=== PATIENT | female | born 1990 | race Caucasian/White ===

== ENCOUNTER 2019-02-07 10:27 | Observation (INO) | payer MEDICAID ==
[2019-02-07] MEDS ORDERED: PREN-153 PO (11:24)
[2019-02-07] MEDS ORDERED: ACET1CAP14 PO (11:25)
== END 2019-02-07 11:57 | disposition home or self-care (01) | DRG 563 ==
LOC: LDRP 10:27
PROVIDERS: ADMIT Obstetrics & Gynecology; ATTEND Obstetrics & Gynecology
DX: O60.03 Preterm labor without delivery, third trimester (principal); Z3A.31 31 weeks gestation of pregnancy; Z87.891 Personal history of nicotine dependence
CPT/HCPCS: 76818; G0378; 59025; 81002

== ENCOUNTER 2019-02-14 13:42 | Observation (INO) | payer MEDICAID ==
[~2019-02-14 13:42] MED LIST: ACET1CAP14 PO; PREN-153 PO
== END 2019-02-14 17:20 | disposition home or self-care (01) | DRG 566 ==
LOC: LDRP 15:52
PROVIDERS: ADMIT Specialist; ATTEND Specialist
DX: O26.893 Other specified pregnancy related conditions, third trimester (principal); Z3A.32 32 weeks gestation of pregnancy
CPT/HCPCS: 59025; 81002; G0378; 76818

== ENCOUNTER 2019-02-21 12:25 | Observation (INO) | payer MEDICAID | END 2019-02-21 15:25 | disposition home or self-care (01) | DRG 566 | LOC: LDRP 14:18 | PROVIDERS: ADMIT Obstetrics & Gynecology; ATTEND Obstetrics & Gynecology | DX: O26.893 Other specified pregnancy related conditions, third trimester (principal); Z3A.33 33 weeks gestation of pregnancy | CPT/HCPCS: 59025; 76818; 81002; G0378 ==

== ENCOUNTER 2019-02-28 15:25 | Observation (INO) | payer MEDICAID | END 2019-02-28 16:35 | disposition home or self-care (01) | DRG 566 | LOC: LDRP 15:25 | PROVIDERS: ADMIT Specialist; ATTEND Specialist | DX: O26.893 Other specified pregnancy related conditions, third trimester (principal); Z3A.34 34 weeks gestation of pregnancy; Z87.891 Personal history of nicotine dependence | CPT/HCPCS: 59025; 76818; 81002; G0378 ==

== ENCOUNTER 2019-03-07 12:28 | Observation (INO) | payer MEDICAID | END 2019-03-07 13:55 | disposition home or self-care (01) | DRG 566 | LOC: LDRP 12:28 | PROVIDERS: ADMIT Obstetrics & Gynecology; ATTEND Obstetrics & Gynecology | DX: O26.893 Other specified pregnancy related conditions, third trimester (principal); Z3A.35 35 weeks gestation of pregnancy | CPT/HCPCS: 59025; 76818; 81002; G0378 ==

== ENCOUNTER 2019-03-14 13:13 | Observation (INO) | payer MEDICAID | END 2019-03-14 14:31 | disposition home or self-care (01) | DRG 566 | LOC: LDRP 13:13 | PROVIDERS: ADMIT Obstetrics & Gynecology; ATTEND Obstetrics & Gynecology | DX: O28.1 Abnormal biochemical finding on antenatal screening of mother (principal); R79.89 Other specified abnormal findings of blood chemistry; Z3A.36 36 weeks gestation of pregnancy | CPT/HCPCS: 59025; 76818; 81002; G0378 ==

== ENCOUNTER 2019-03-21 11:26 | Observation (INO) | payer MEDICAID | END 2019-03-21 13:45 | disposition home or self-care (01) | DRG 566 | LOC: LDRP 11:26 | PROVIDERS: ADMIT Obstetrics & Gynecology; ATTEND Obstetrics & Gynecology | DX: O36.8330 Maternal care for abnormalities of the fetal heart rate or rhythm, third trimester, not applicable or unspecified (principal); Z3A.37 37 weeks gestation of pregnancy | CPT/HCPCS: 59025; 76818; 81002; G0378 ==

== ENCOUNTER 2019-03-28 12:54 | Observation (INO) | payer MEDICAID ==
[~2019-03-28 12:54] MED LIST changes: -ACET1CAP14 PO
== END 2019-03-28 14:50 | disposition home or self-care (01) | DRG 861 ==
LOC: LDRP 12:54
PROVIDERS: ADMIT Specialist; ATTEND Specialist
DX: Z34.83 Encounter for supervision of other normal pregnancy, third trimester (principal); Z3A.38 38 weeks gestation of pregnancy
CPT/HCPCS: 59025; 76818; 81002; G0378

== ENCOUNTER 2019-04-05 10:20 | Observation (INO) | payer MEDICAID | END 2019-04-05 11:35 | disposition home or self-care (01) | DRG 861 | LOC: LDRP 10:20 | PROVIDERS: ADMIT Obstetrics & Gynecology; ATTEND Obstetrics & Gynecology | DX: Z34.83 Encounter for supervision of other normal pregnancy, third trimester (principal); Z3A.39 39 weeks gestation of pregnancy | CPT/HCPCS: 59025; 76818; 81002; G0378 ==

== ENCOUNTER 2019-04-10 13:28 | Observation (INO) | payer MEDICAID | END 2019-04-10 15:07 | disposition home or self-care (01) | DRG 566 | LOC: LDRP 13:28 | PROVIDERS: ADMIT Specialist; ATTEND Specialist | DX: O28.1 Abnormal biochemical finding on antenatal screening of mother (principal); Z3A.40 40 weeks gestation of pregnancy | CPT/HCPCS: 59025; 76818; 81002; G0378 ==

== ENCOUNTER 2019-04-12 06:50 | Inpatient (IN) | payer MEDICAID ==
[~2019-04-12] VITALS: Ht 165.1 cm; Wt 93.4 kg
[2019-04-12] MEDS ORDERED: ACET-1156 PO (07:15)
[2019-04-12] MEDS ORDERED: PHISODERM TOP SOLN 240ML BTL TOP PRN (07:30)
[2019-04-12] MEDS ORDERED: LIDOCAINE 2%HCL (LOCAL ANESTH.) INJ 20ML MDV ID ONE (07:30)
[2019-04-12] MEDS ORDERED: NALBUPHINE HCL 10 MG/1ml INJECTION IV PRN (07:30)
[2019-04-12] MEDS ORDERED: WITCH HAZEL-GLYCERIN PAD TOP PRN (07:30)
[2019-04-12] MEDS ORDERED: METHYLERGONOVINE MALEATE 0.2 MG/ML AMP IM PRN (07:30)
[2019-04-12] MEDS ORDERED: LACT. RINGERS/OXYTOCIN 20UNITS 1,000 ML IV SCH (07:30)
[2019-04-12] MEDS: LACTATED RINGER'S 1,000 ML IV SCH ×3 (08:01→12:43)
[2019-04-12 08:17] LABS: Urine WBC None Seen /hpf (0 - 5)
[2019-04-12 08:29] LABS: Basophils # (auto) 0.1 uL; Basophils % (auto) 0.7 % (0.0-2.0); Eosinophils # (auto) 0 uL; Hematocrit 37.9 % (36.0-46.0); Hemoglobin 12.8 g/dL (12.2-16.2); Mean Corpuscular Hemoglobin 30.6 pg (28.0-32.0); Mean Corpuscular Hgb Conc. 33.8 g/dL (32.0-36.0); Mean Corpuscular Volume 90.7 fL (80.0-100.0); Monocytes # (auto) 0.3 uL; Monocytes % (auto) 2.3 % (0.0-12.0); Neutrophils # (auto) 12.5 uL; Platelet Count (auto) 223 10^3/uL (140-450); Red Blood Cells 4.18 10^6/uL (4.0-5.20); Red Cell Distribution Width 13.6 % (11.8-14.3); White Blood Cell 13.9 10^3/uL (4.4-10.8)
[2019-04-12 08:37] LABS: Urine Amorphous Crystal MANY /hpf (None Seen); Urine Bacteria NONE SEEN /hpf (None Seen); Urine Blood Negative /uL (Negative); Urine Mucus FEW (None Seen); Urine Specific Gravity 1.018 (1.001-1.035)
[2019-04-12 08:46] LABS: Albumin 2.8 g/dL (3.4-5.0); Calcium 8.6 mg/dL (8.5-10.1); Potassium 3.6 mmol/L (3.5-5.1)
[2019-04-12 08:48] LABS: BUN/Creatinine Ratio 8.9
[2019-04-12 08:50] LABS: INR 0.96 (0.9-1.15); Partial Thromboplastin Time 26.6 sec (23.64-32.05)
[2019-04-12 08:50] LABS: Alcohol, Urine < 3.0 mg/dL (0-5); Amphetamine Screen, Urine NEGATIVE (NEGATIVE); Barbiturate Scree,Urine NEGATIVE (NEGATIVE); Benzodiazephine Screen, Urine NEGATIVE (NEGATIVE); Cannabinoid Screen, Urine NEGATIVE (NEGATIVE); Cocaine Screen, Urine NEGATIVE (NEGATIVE); Opiate Scree,Urine NEGATIVE (NEGATIVE); Phencyclidine Screen, Urine NEGATIVE (NEGATIVE)
[2019-04-12 08:51] LABS: Bilirubin, Total 0.3 mg/dL (0.2-1.0)
[2019-04-12] MEDS ORDERED: PROMETHAZINE HCL 25 MG/ML 1ML IV PRN (09:45)
[2019-04-12] MEDS ORDERED: LACTATED RINGER'S 1,000 ML IV ONE (10:43)
[2019-04-12] MEDS ORDERED: LIDOCAINE HCL 2 %PF INJ 10ML AMP IJ ONE (10:45)
[2019-04-12] MEDS ORDERED: ePHEDrine SULFATE 50 MG/ML AMP IV ONE (10:45)
[2019-04-12] MEDS ORDERED: NALOXONE HCL 0.4 MG/ML VIAL IV ONE (10:45)
[2019-04-12] MEDS ORDERED: fentaNYL W ROPIVACAINE 150 ML EPI SCH (10:45)
[2019-04-12] MEDS ORDERED: fentaNYL CITRATE 100 MCG/2 ML VL IV ONE (11:00)
[2019-04-12] MEDS ORDERED: LACT. RINGERS/OXYTOCIN 20UNITS 500 ML IV ONE (16:19)
[2019-04-12] MEDS: DERMOPLAST 60ML BOTTLE TOP PRN (16:46)
[2019-04-12] MEDS ORDERED: ACETAMINOPHEN 325 MG TAB PO PRN (17:30)
--- NOTE | 2019-04-12 18:18 | NUR ---
Teaching: Reviewed information in [facility] booklet with patient. Discussed benefits of and risks associated with not . Discussed different positions, proper latch, feeding cues, and baby-led . Provided information of medication side effects related to . All questions and concerns addressed at this time. Patient verbalized understanding of information.
--- NOTE | 2019-04-12 18:35 | NUR ---
Ambulation: Patient OOB with standby assistance by RN. Patient ambulated to bathroom with steady gait. Patient able to void 700ML without difficulty. [facility] teaching provided with returned demonstration by patient. Clean gown provided and bed linen changed. Patient ambulated back to bed with steady gait and no distress noted.
[2019-04-12] MEDS: IBUPROFEN 600 MG TAB PO PRN (18:59)
[2019-04-12 19:01] VITALS: BP 135/76
[2019-04-12 22:59] VITALS: BP 126/73
--- NOTE | 2019-04-12 23:00 | NUR ---
Bottle-feeding Education: Patient encouraged to breastfeed. Benefits of and the risk of providing formula to was discussed. Patient verbalized understanding of the benefits and is aware of risk and insists on bottle-feeding. Formula provided and instruction on formula preperation from the [facility] booklet reviewed with patient.
[2019-04-13] MEDS: IBUPROFEN 600 MG TAB PO PRN ×2 (00:36→18:32)
[2019-04-13 03:00] VITALS: BP 117/64
[2019-04-13 05:07] LABS: RPR Non Reactive (Non Reactive)
[2019-04-13] MEDS ORDERED: TETANUS-DIPTH-ACEL PERTUSSIS 0.5ML SYRG IM ONE (05:15)
[2019-04-13] MEDS ORDERED: MEASLES, MUMPS & RUBELLA VAC(MMRII) 0.5ML SC ONE (05:45)
[2019-04-13 06:42] VITALS: BP 117/66
[2019-04-13 08:13] LABS: Calcium 8.1 mg/dL (8.5-10.1); Potassium 3.4 mmol/L (3.5-5.1)
[2019-04-13 08:15] LABS: Albumin 2.4 g/dL (3.4-5.0)
[2019-04-13 08:27] LABS: Bilirubin, Total 0.5 mg/dL (0.2-1.0); Total Protein 5.7 g/dL (6.4-8.2)
[2019-04-13 11:18] VITALS: BP 119/74
[2019-04-13 14:54] VITALS: BP 111/76
[2019-04-13 19:00] VITALS: BP 119/67
--- NOTE | 2019-04-13 20:30 | NUR ---
IV removal IV DC'd per Pérez CNM orders with sterile technique, catheter fully intact. Pressure dressing applied to site. Patient tolerated procedure well. Discharged with aftercare instructions per MD.
[2019-04-13 22:54] VITALS: BP 107/61
[2019-04-14 03:32] VITALS: BP 112/64
[2019-04-14] MEDS: IBUPROFEN 600 MG TAB PO PRN ×2 (05:52→09:21)
[2019-04-14 07:00] VITALS: BP 119/65
--- NOTE | 2019-04-14 09:13 | NUR ---
Discharge: Discharge instructions given as ordered. Pt encouraged to follow up with CELL INSPECTOR as instructed. All questions and concerns addressed. Patient verbalized understanding. Medication reconciliation completed and copy given to patient. All required/requested vaccines given and copies of vaccinations given to patient. Patient encouraged to prepare to depart unit.
[2019-04-14] MEDS: DERMOPLAST 60ML BOTTLE TOP PRN (09:21)
[2019-04-14] MEDS ORDERED: MEASLES, MUMPS & RUBELLA VAC(MMRII) 0.5ML SC ONE (09:30)
--- NOTE | 2019-04-14 10:15 | NUR ---
Discharge: Patient taken to vehicle via wheelchair with all personal belongings, accompanied by staff and family member. No distress noted at time of departure, no adverse changes in status since initial assessment.
== END 2019-04-14 10:15 | disposition home or self-care (01) | DRG 560 ==
LOC: LDRP 06:50 → OBSVTOIN 07:30 → LDRP 10:45
PROVIDERS: ADMIT Obstetrics & Gynecology; ATTEND Obstetrics & Gynecology
PROC: 10E0XZZ Delivery of Products of Conception, External Approach (ICD-10-PCS; principal; 2019-04-12)
PROC: 10907ZC Drainage of Amniotic Fluid, Therapeutic from Products of Conception, Via Natural or Artificial Opening (ICD-10-PCS; 2019-04-12)
PROC: 3E0R3BZ Introduction of Anesthetic Agent into Spinal Canal, Percutaneous Approach (ICD-10-PCS; 2019-04-12)
PROC: 00HU33Z Insertion of Infusion Device into Spinal Canal, Percutaneous Approach (ICD-10-PCS; 2019-04-12)
PROC: 0W8NXZZ Division of Female Perineum, External Approach (ICD-10-PCS; 2019-04-12)
PROC: 0KQM0ZZ Repair Perineum Muscle, Open Approach (ICD-10-PCS; 2019-04-12)
DX: O48.0 Post-term pregnancy (principal); O70.1 Second degree perineal laceration during delivery; O77.0 Labor and delivery complicated by meconium in amniotic fluid; Z3A.40 40 weeks gestation of pregnancy; Z37.0 Single live birth
CPT/HCPCS: 36415; 51702; 59025; 59409; 62282; 80053; 80307; 81001; 81002; 84112; 85025; 85610; 85730; 86592; 86850; 86900; 86901; 90715; 96361; 96365; 96366; 96372; 96375; G0378; J2590; J3010

== ENCOUNTER 2023-01-22 06:28 | Day surgery (SDC) | payer MEDICAID ==
[2023-01-19 11:31] LABS: Urine Bacteria NONE SEEN /hpf (None Seen); Urine Blood Negative /uL (Negative); Urine Clarity Clear (Clear); Urine Color Yellow (Yellow); Urine Mucus FEW (None Seen); Urine Protein, UAD Negative (Negative); Urine Specific Gravity 1.029 (1.001-1.035); Urine Urobilinogen Normal (Negative); Urine WBC 1 /hpf (0 - 5)
[2023-01-19 11:37] LABS: Basophils # (auto) 0 10 ^3/uL (0-0.2); Eosinophils # (auto) 0.1 10 ^3/uL (0-0.8); Hemoglobin 13.3 g/dL (12.2-16.2); Lymphocytes # (auto) 2.4 10 ^3/uL (0.4-5.4); Mean Corpuscular Hgb Conc. 33.2 g/dL (32.0-36.0)
[2023-01-19 11:38] LABS: INR 0.98 (0.9-1.15); Partial Thromboplastin Time 28.8 SEC (24.5-34.5); Prothrombin Time 10.3 sec (9.3-11.8)
[2023-01-19 11:41] LABS: Basophils % (auto) 0.4 % (0.0-2.0); Hematocrit 39.9 % (36.0-46.0); Lymphocytes % (auto) 27.1 % (10.0-50.0); Mean Corpuscular Volume 81.3 fL (80.0-100.0); Monocytes # (auto) 0.5 10 ^3/uL (0-1.3); Monocytes % (auto) 5.2 % (0.0-12.0); Neutrophils # (auto) 5.8 10 ^3/uL (1.6-8.6); Neutrophils % (auto) 66.3 % (37.0-80.0); Red Blood Cells 4.91 10^6/uL (4.0-5.20); Red Cell Distribution Width 19.1 % (11.8-14.3); White Blood Cell 8.7 10^3/uL (4.4-10.8)
[2023-01-19 11:59] LABS: Alanine Aminotransferase 13 U/L (7-40); Alkaline Phosphatase 100 U/L (46-116); Anion Gap 8.3 (5-15); BUN/Creatinine Ratio 12.2 (10.0-20.0); Blood Urea Nitrogen 9 mg/dL (9-23); Calcium 9.4 mg/dL (8.5-10.1); Carbon Dioxide 22.7 mmol/L (20-30); Chloride 107 mmol/L (98-107); Glucose 114 mg/dL (74-106); Potassium 3.9 mmol/L (3.5-5.1); Sodium 138 mmol/L (136-145)
[2023-01-19 12:01] LABS: Albumin 4.5 g/dL (3.2-4.8); Aspartate Aminotransferase 11 U/L (13-40); Bilirubin, Total 0.3 mg/dL (0.2-1.0); Total Protein 7.3 g/dL (5.7-8.2)
[~2023-01-22] VITALS: Ht 165.1 cm; Wt 96.6 kg
[~2023-01-22 06:28] MED LIST changes: +IRONTAB34 OR; -PREN-153 PO
[2023-01-22] MEDS ORDERED: ceFAZolin 1GM/50ML 100 ML IV ONE (07:26)
[2023-01-22] MEDS ORDERED: IBUP-1456 PO (07:59)
[2023-01-22] MEDS ORDERED: ZOFR4T PO (07:59)
[2023-01-22] MEDS ORDERED: MEPERIDINE HCL (50 MG/ML) 1 ML VIAL ONE (08:46)
[2023-01-22] MEDS ORDERED: MIDAZOLAM HCL 2MG/2ML 2ml VIAL (1mg/ml) ONE (08:46)
[2023-01-22] MEDS ORDERED: fentaNYL CITRATE 100 MCG/2 ML VL ONE (08:46)
[2023-01-22] MEDS ORDERED: GLYCOPYRROLATE 0.2 MG/ML 1ML VIAL ONE (08:47)
[2023-01-22] MEDS ORDERED: KETOROLAC TROMETH 30 MG/ML 1ML VIAL ONE (08:47)
[2023-01-22] MEDS ORDERED: PROPOFOL 10 MG/ML 20 ML IV ONE (08:47)
[2023-01-22] MEDS ORDERED: ONDANSETRON HCL 4 MG/2 ML VIAL ONE (08:47)
[2023-01-22] MEDS ORDERED: DexAMETHasone SOD PHOS 10MG/1ML VIAL INJ ONE (08:47)
[2023-01-22] MEDS ORDERED: LIDOCAINE 2% (LOCAL ANESTH.) PF 5ml SDV ONE (08:47)
[2023-01-22 09:44] VITALS: TEMP 97.5; O2SAT 100
[2023-01-22] MEDS ORDERED: HYDROmorphone HCL 2 MG/ML VL/or syr IV PRN (10:00)
[2023-01-22] MEDS ORDERED: ONDANSETRON HCL 4 MG/2 ML VIAL IV PRN (10:00)
[2023-01-22 10:44] VITALS: BP 113/62; PULSE 82; RESP 10; O2SAT 98
== END 2023-01-22 10:53 | disposition home or self-care (01) ==
LOC: SUR 06:28
PROVIDERS: ATTEND Obstetrics & Gynecology
DX: N93.9 Abnormal uterine and vaginal bleeding, unspecified (principal); N88.8 Other specified noninflammatory disorders of cervix uteri; Z79.1 Long term (current) use of non-steroidal anti-inflammatories (NSAID); Z91.013 Allergy to seafood
CPT/HCPCS: 36415; 58558; 80053; 81001; 81025; 84702; 85025; 85610; 85730; 86850; 86900; 86901; J0690; J1100; J1885; J2001; J2175; J2250; J2405; J2704; J3010

== ENCOUNTER 2024-08-23 10:09 | Observation (INO) | payer MEDICAID ==
[~2024-08-23 10:09] MED LIST changes: +IBUP-1456 PO; +ZOFR4T PO
--- NOTE | 2024-08-23 11:00 | DVH ---
BIOPHYSICAL PROFILE HISTORY: AMA Comparison Study: None TECHNIQUE: Multiple real-time grayscale sonographic images through the gravid uterus of the fetus wi th duplex Doppler color flow and M-mode spectral analysis FINDINGS: BIOPHYSICAL PROFILE: breathing score: 2 movement score: 2 tone score: 2 Quantitative SARABJIT score: 2 (SARABJIT: 15.4 Cm.) Total score: 8 The cervix is not visualized Single live fetus in cephalic presentation. heart rate 138 beats per minute. Grade 2, anterior placenta without previa or abruption IMPRESSION: Biophysical profile score: 8
== END 2024-08-23 11:56 | disposition home or self-care (01) ==
LOC: LDRP 10:09
PROVIDERS: ADMIT Obstetrics & Gynecology; ATTEND Obstetrics & Gynecology
DX: O09.513 Supervision of elderly primigravida, third trimester (principal); Z3A.35 35 weeks gestation of pregnancy; Z79.899 Other long term (current) drug therapy
CPT/HCPCS: 76819; 81002; 94760; G0378

== ENCOUNTER 2024-08-30 08:05 | Observation (INO) | payer MEDICAID ==
[2024-08-30] MEDS ORDERED: PREN-96 PO (09:06)
--- NOTE | 2024-08-30 09:59 | DVHDS2 ---
Physician Discharge Progress N Final Diagnosis: ama 36wks Operations or Procedures: Operations or Procedures nst,sono Condition on Discharge: Good Disposition: Home Discharge Instructions: Diet: Regular Activity: No Restrictions, As Tolerated Medications: na Follow Up Care: Specialist: 1w Discharge Statement: "Patient was advised to return to the ER or call 911 if any headaches, dizziness, shortness of breath, chest pain, abdominal pain, bleeding, fevers, or worsening of medical condition. Patient was counseled about treatment plan, medications, possible side effects, patientverbalized understanding. All questions were answered to the best of my ability. This discharge took greater then 30 minutes in planning, reviewing documentation, counseling the patient, and discussing with other team members." Visit Coding OBGYN Date of Service: Aug 30, 2024 Billing Provider: SULEMAN MIJARES DO FOOD PROCESSING CHEMIST Common Visit Codes: [id number] OBS CARE (HIGH) FOOD PROCESSING CHEMIST Procedure Codes: 41378-50- NON-STRESS TEST SULEMAN MIJARES DO Aug 30, 2024 09:59
--- NOTE | 2024-08-30 11:04 | DVH ---
BIOPHYSICAL PROFILE HISTORY: AMA TECHNIQUE: Multiple transabdominal real-time grayscale sonographic images through the gravid uterus of the fetus with duplex Doppler color flow and M-mode spectral analysis FINDINGS: BIOPHYSICAL PROFILE: breathing score: 2 movement score: 2 tone score: 2 Quantitative SARABJIT score: 2 (SARABJIT: 14.2 Cm.) Total score: 8 The cervix not well visualized Single live fetus in cephalic presentation. heart rate 132 beats per minute. Grade 2 anterior placenta without previa or abruption IMPRESSION: Biophysical profile score: 8
== END 2024-08-30 09:34 | disposition home or self-care (01) ==
LOC: LDRP 08:05
PROVIDERS: ADMIT Obstetrics & Gynecology; ATTEND Obstetrics & Gynecology
DX: O09.523 Supervision of elderly multigravida, third trimester (principal); Z3A.36 36 weeks gestation of pregnancy; Z79.899 Other long term (current) drug therapy
CPT/HCPCS: 59025; 76819; 81002; 94760; G0378

== ENCOUNTER 2024-09-06 08:17 | Observation (INO) | payer MEDICAID ==
[~2024-09-06 08:17] MED LIST changes: +PREN-96 PO
--- NOTE | 2024-09-06 09:21 | DVH ---
CLINICAL HISTORY: AMA COMPARISON: US BIOPHYSICAL PROFILE on DOS: 08/30/24, US BIOPHYSICAL PROFILE on DOS: 08/23/24 TECHNIQUE: biophysical profile was performed. Transabdominal sonographic images of the fetus we re obtained. FINDINGS: The fetus is in cephalic position. heart rate measures 136 BPM. Amniotic fluid index measures 17.2 cm. The placenta is anterior in position without evidence of previa or abruption. BPP profile is an overall score of 8/8, with 2/2 points for breathing, with at least one episode of breathing over a 30 second duration during a 30 minute observation, 2/2 points for m ovements, with 3 or more discrete body or limb movements, 2/2 points for tone, with one or more episodes of extremity extension with return to flexion, or opening and closing of hand, and 2/ 2 points for amniotic fluid, with at least 1 pocket of amniotic fluid that measures 2 cm in 2 perpend icular planes. IMPRESSION: BPP score of 8/8.
--- NOTE | 2024-09-06 13:43 | DVHDS2 ---
Physician Discharge Progress N Final Diagnosis: ama 37wks Operations or Procedures: Operations or Procedures nst,sono Condition on Discharge: Good Disposition: Home Discharge Instructions: Diet: Regular Activity: No Restrictions, As Tolerated Medications: na Follow Up Care: Specialist: 1w Discharge Statement: "Patient was advised to return to the ER or call 911 if any headaches, dizziness, shortness of breath, chest pain, abdominal pain, bleeding, fevers, or worsening of medical condition. Patient was counseled about treatment plan, medications, possible side effects, patientverbalized understanding. All questions were answered to the best of my ability. This discharge took greater then 30 minutes in planning, reviewing documentation, counseling the patient, and discussing with other team members." Visit Coding OBGYN Date of Service: Sep 06, 2024 Billing Provider: SULEMAN MIJARES DO MACHINE FELLER Common Visit Codes: [id number] INP/OBS CARE (HIGH) MACHINE FELLER Procedure Codes: 76674-MLK.SURG: W/SALPINGOSTOMY, 04231-30- NON- STRESS TEST SULEMAN MIJARES DO Sep 06, 2024 13:42
== END 2024-09-06 09:28 | disposition home or self-care (01) ==
LOC: LDRP 08:17 → UNDOADMOB 08:17 → LDRP 08:25 → UNDODISOB 09:28
PROVIDERS: ADMIT Obstetrics & Gynecology; ATTEND Obstetrics & Gynecology
DX: O09.523 Supervision of elderly multigravida, third trimester (principal); Z3A.37 37 weeks gestation of pregnancy
CPT/HCPCS: 59025; 76819; 81002; 94760; G0378

== ENCOUNTER 2024-09-13 14:00 | Observation (INO) | payer MEDICAID ==
[~2024-09-13] VITALS: Ht 165.1 cm; Wt 104.3 kg
--- NOTE | 2024-09-13 14:51 | DVH ---
BIOPHYSICAL PROFILE HISTORY: AMA TECHNIQUE: Multiple transabdominal real-time grayscale sonographic images through the gravid uterus of the fetus with duplex Doppler color flow and M-mode spectral analysis FINDINGS: BIOPHYSICAL PROFILE: breathing score: 2 movement score: 2 tone score: 2 Quantitative SARABJIT score: 2 (SARABJIT: 16.6 Cm.) Total score: 8 The cervix not well visualized. Single live fetus in cephalic presentation. heart rate 150 beats per minute. Anterior placenta without previa or abruption IMPRESSION: Biophysical profile score: 8
--- NOTE | 2024-09-14 17:13 | DVHDS2 ---
Physician Discharge Progress N Final Diagnosis: ama 38wks Operations or Procedures: Operations or Procedures nst,sonno Condition on Discharge: Good Disposition: Home Discharge Instructions: Diet: Regular Activity: Light activity Medications: na Follow Up Care: Specialist: 1w Discharge Statement: "Patient was advised to return to the ER or call 911 if any headaches, dizzines s, shortness of breath, chest pain, abdominal pain, bleeding, fevers, or worsening of medical condition. Patient was counseled about treatment plan, medications, possible side effects, patientverbalized understanding. All questions were answered to the best of my ability. This discharge took greater then 30 minutes in planning, reviewing documentation, counseling the patient, and discussing with other team members." Visit Coding OBGYN Date of Service: Sep 14, 2024 Billing Provider: SULEMAN MIJARES DO SURGERY MANAGER Common Visit Codes: [id number] INP/OBS CARE (HIGH) SURGERY MANAGER Procedure Codes: 69812-50- NON-STRESS TEST SULEMAN MIJARES DO Sep 14, 2024 17:13
== END 2024-09-13 15:07 | disposition home or self-care (01) ==
LOC: LDRP 14:00
PROVIDERS: ADMIT Obstetrics & Gynecology; ATTEND Obstetrics & Gynecology
DX: O09.513 Supervision of elderly primigravida, third trimester (principal); Z3A.38 38 weeks gestation of pregnancy; Z79.899 Other long term (current) drug therapy
CPT/HCPCS: 59025; 76819; 81002; 94760; G0378

== ENCOUNTER 2024-09-18 08:11 | Inpatient (IN) | payer MEDICAID ==
[~2024-09-18] VITALS: Ht 165.1 cm; Wt 104.3 kg
[2024-09-18] MEDS ORDERED: NALBUPHINE HCL 10 MG/1ml INJECTION IV PRN (08:30)
[2024-09-18 09:20] LABS: Albumin 4.2 g/dL (3.2-4.8); Anion Gap 12 (5-15); BUN/Creatinine Ratio 10.2 (10.0-20.0); Bilirubin, Total 0.5 mg/dL (0.2-1.0); Calcium 9.6 mg/dL (8.7-10.4); Carbon Dioxide 22 mmol/L (20-31); Chloride 106 mmol/L (98-107); Glucose 94 mg/dL (74-106); Sodium 140 mmol/L (136-145); Total Protein 6.5 g/dL (5.7-8.2)
[2024-09-18 09:21] LABS: Alanine Aminotransferase < 9 U/L (7-40); Alkaline Phosphatase 141 U/L (46-116); Aspartate Aminotransferase 12 U/L (13-40); Basophils # (auto) 0 10 ^3/uL (0-0.2); Basophils % (auto) 0.2 % (0.0-2.0); Blood Urea Nitrogen 5 mg/dL (9-23); Eosinophils # (auto) 0.1 10 ^3/uL (0-0.8); Eosinophils % (auto) 0.6 % (0.0-7.0); Hematocrit 36.5 % (36.0-46.0); Hemoglobin 12.5 g/dL (12.2-16.2); Lymphocytes # (auto) 1.9 10 ^3/uL (0.4-5.4); Lymphocytes % (auto) 18.6 % (10.0-50.0); Mean Corpuscular Hemoglobin 30.1 pg (28.0-32.0); Mean Corpuscular Hgb Conc. 34.2 g/dL (32.0-36.0); Mean Corpuscular Volume 88.1 fL (80.0-100.0); Monocytes # (auto) 0.7 10 ^3/uL (0-1.3); Neutrophils # (auto) 7.6 10 ^3/uL (1.6-8.6); Neutrophils % (auto) 73.6 % (37.0-80.0); Nucleated Red Blood Cells % 0.1 %; Platelet Count (auto) 207 10^3/uL (140-450); Potassium 3.3 mmol/L (3.5-5.1); Red Blood Cells 4.15 10^6/uL (4.0-5.20); Red Cell Distribution Width 15.2 % (11.8-14.3); White Blood Cell 10.3 10^3/uL (4.4-10.8)
[2024-09-18 09:32] LABS: INR 0.97 (0.9-1.15); Partial Thromboplastin Time 26.6 SEC (24.5-34.5); Prothrombin Time 10.3 sec (9.3-11.8)
[2024-09-18 09:56] LABS: Urine Bacteria FEW /hpf (None Seen); Urine Blood Negative /uL (Negative); Urine Clarity Turbid (Clear); Urine Color Yellow (Yellow); Urine Mucus FEW (None Seen); Urine Protein, UAD Negative (Negative); Urine Squamous Epithelial Cell MOD /hpf (<5); Urine Urobilinogen Normal (Negative); Urine WBC 3 /HPF (0-5)
[2024-09-18] MEDS: miSOPROStol 50 MCG per PRE-CUT 1/2 TAB PO PRN (10:00)
[2024-09-18] MEDS: LACTATED RINGER'S 1,000 ML IV SCH (10:01)
[2024-09-18 10:11] LABS: Amphetamine Screen, Urine Neg (NEGATIVE); Barbiturate Scree,Urine Neg (NEGATIVE); Benzodiazephine Screen, Urine Neg (NEGATIVE); Cannabinoid Screen, Urine Neg (NEGATIVE); Cocaine Screen, Urine Neg (NEGATIVE); Opiate Scree,Urine Neg (NEGATIVE); Phencyclidine Screen, Urine Neg (NEGATIVE)
--- NOTE | 2024-09-18 13:49 | DVH ---
EXAM: US OBSTERICAL LIMITED HISTORY: verify presentation COMPARISON: None TECHNIQUE: Transabdominal limited OB ultrasound was performed. FINDINGS/IMPRESSION: 1. Single intrauterine in cephalic position with heart rate 147 BPM. 2. Amniotic fluid index 18 cm 3. The placenta is anterior, without evidence of placenta previa.
[2024-09-18] MEDS ORDERED: TERBUTALINE SULFATE 1 MG/ML 1ML VIAL SC PRN (14:30)
[2024-09-18] MEDS ORDERED: NALOXONE HCL 0.4 MG/ML VIAL IV ONE (15:00)
[2024-09-18] MEDS: LIDOCAINE HCL 2 %PF INJ 10ML AMP IJ ONE (15:00)
[2024-09-18] MEDS ORDERED: ePHEDrine SULFATE 50 MG/ML AMP IV ONE (15:00)
[2024-09-18] MEDS: DERMOPLAST 60ML BOTTLE TOP PRN (15:44)
[2024-09-18] MEDS: PHISODERM TOP SOLN 240ML BTL TOP PRN (15:44)
[2024-09-18] MEDS: WITCH HAZEL-GLYCERIN PAD TOP PRN (15:44)
[2024-09-18] MEDS: ROPIVACAINE HCL 200 ML ONE (15:54)
[2024-09-18] MEDS: fentaNYL CITRATE 100 MCG/2 ML VL IV ONE (15:59)
--- NOTE | 2024-09-18 16:20 | EPIDURAL ---
Anesthesia Procedural Note - Epidural Informed consent obtained?: Yes Medication Administered: Fentanyl 100 mcg Spinal level of insertion: L4-L5 Test dose of lidocaine & Epine: Negative Infusion started: Yes Start time: 15:35 End time: 16:05 Procedure description Procedure description: Called for labor analgesia. Patient examined, history taken and chart reviewed at 1535. Patient is here for induction of labor for suspected macrosomia. Patient requested labor epidural prior to labor augmentation with pitocin. Informed consent for CSE obtained. Sitting position, sterile prep and drape. Time out done at 1537 (BP 141/77 HR 85 spO2 98). L4-5 space infiltrated with 1% lido. Epidural needle placed with MAULIK at 6cm. 25G spinal needle +clear CSF. 15mcg fentanyl given IT at 1545 (BP 127/71 HR 94 spO2 99). Catheter secured at 12cm. Aspiration and test dose (3cc 1.5% lido with epi) negative at 1548 (BP 126/69 HR 92 spO2 98). 85mcg fentanyl given via epidural at 1552 (BP 119/63 HR 80 spO2 99). Patient reports comfort. 0.2% ropivacaine infusion initiated at 1600 (BP 121/65 HR 87 spO2 99). Will follow as needed. BINDU BORRERO MD Sep 18, 2024 16:20
[2024-09-18] MEDS: LACTATED RINGER'S 1,000 ML IV ONE (16:28)
[2024-09-18] MEDS: LACT. RINGERS/OXYTOCIN 20UNITS 1,000 ML IV SCH (16:30)
--- NOTE | 2024-09-18 22:46 | DVHHP2 ---
OB CC & HPI Patient Identification: : 2 Para: 1 EDC: September 26, 2024 EGA: 38 10/28 Chief Complaints: Reason for admission: induction of labor (AMA Macrosomia) Indication for induction: post dates Admission Nurse Assessment Rev: Yes Past Medical History Cardiac: No pertinent Hx Pulmonary: No pertinent Hx Central Nervous System: No pertinent Hx GI: No pertinent Hx Hemotology/Oncology: No pertinent Hx Hepatobiliary: No pertinent Hx Psychiatric: No pertinent Hx Musculoskeletal: No pertinent Hx Rheumotologic: No pertinent Hx Infectious Disease: No peritnent Hx ENT: No pertinent Hx Renal/: No pertinent Hx Endocrine: No pertinent Hx Dermatology: No pertinent Hx Past Surgical History: No pertinent Hx OB History OB History Care: Good Care Ultrasounds: Normal mid trimester US Allergies: Uncoded Allergies: FISH (Allergy, Mild, 04/13/19) ITCHING Home Meds Active Scripts Ondansetron Odt 4MG Tab (ZOFRAN PO) 4 Mg Tb, 4 MG PO Q4HPRN PRN for 4 Days, #20 TAB ODT TAB-DISSOLVE IN MOUTH, THEN SWALLOW Prov:SULEMAN MIJARES DO 01/22/23 Ibuprofen (Ibuprofen) 800 Mg Tab, 800 MG PO TID PRN for 15 Days, #40 TAB Prov:SULEMAN MIJARES DO 01/22/23 Reported Medications Vit W/ Ferrous Fumara ( One Daily) Daily Tab, 1 TAB PO DAILY, #90 TAB 3 Refills 08/30/24 Iron-Vitamin C-Vitamin B12-Fol (IRON 100 PLUS) Plus Tab, 1 TAB OR DAILY, TAB 01/21/23 Current Medications Current Medications Medications (Trade) Dose Ordered Sig/Stephan Route PRN Reason Start Time Stop Time Status Last Admin Lactated Ringer's 1,000 ml @ 125 mls/hr Q8H IV 09/18/24 08:30 09/18/24 10:01 Nalbuphine HCl (Nubain) 10 mg Q4HP PRN IV MODERATE PAIN (4-6 PAIN SCALE) 09/18/24 08:30 Witch Oly (Tucks) 1 pad PRN PRN TOP PERINEAL AREA DISCOMFORT 09/18/24 08:30 09/18/24 15:44 Sodium Lauryl Sulfate (Phisoderm) 240 ml PRN PRN TOP PERINEAL AREA DISCOMFORT 09/18/24 08:30 4/28/25 15:44 Benzocaine (Dermoplast) 1 applic PRN PRN TOP PERINEAL AREA DISCOMFORT 09/18/24 08:30 09/18/24 15:44 Misoprostol (Cytotec) 50 mcg Q4HPRN PRN PO CERVICAL RIPENING 09/18/24 08:30 09/18/24 10:00 Lidocaine HCl (Xylocaine) 20 ml ONCE PRN IJ PERINEAL AREA DISCOMFORT 09/18/24 08:30 Oxytocin 1,000 ml @ 6 ml/hr Q24H IV 09/18/24 14:30 09/18/24 16:30 Terbutaline Sulfate (Brethine Inj) 0.25 mg ONCE PRN SC Uterine tachysystole 09/18/24 14:30 Family & Social History Family/Social History Blood Type: O+ Rubella: immune RPR/VDRL: Negative GBS Status: Negative HBsAG: Negative Review of Systems Constitutional: No symptom reported Ears, Nose, & Throat: No symptom reported Eyes: No symptom reported Pulmonary/Respiratory: No symptom reported Cardiovascular: No symptom reported Gastrointestinal: No symptom reported Genitourinary: No symptom reported Musculoskeletal: No symptom reported Skin: No symptom reported Psychiatric: No symptom reported Endocrine: No symptom reported Hemotologic/Lymphatic: No symptom reported OB Admission Exam Physical Exam Vitals: Vital Signs Date Time Temp Pulse Resp B/P (MAP) Pulse Ox O2 Delivery O2 Flow Rate FiO2 09/18/24 15:59 114/61 HEENT: TMs Normal, Fontanelles Normal, Nasal Mucosa Normal, Eyes non-injected, Oropharynx Normal, PERRLA, Moist Membranes, EOMI Heart: Rhythm Normal Lungs: Clear Abdomen: Gravid Extremities: Normal Reflexes: Normal Cervical Dilatation: 3cm Effacement: 75% Station: -2 Membranes: Intact Heart Rate: 130's Accelerations: Accelerations Present Decelerations: No Decelerations Short Term Variability: Present Mcc Variability: Average (6-25) Contractions on Admission: < 5 Minutes Apart Intensity: Firm OB Plan Plan Admitting Diagnosis: Induction of labor, macrosomia, post date Plan: Induction Other Plan: Cytotec induction now on Pitocin Visit Coding OBGYN Date of Service: Sep 18, 2024 Billing Provider: JOE DOWNEY DO GENERAL AGENT Common Visit Codes: [id number] INP/OBS CARE(HIGH) GENERAL AGENT Consultation Codes: 73146-P/U INPATIENT CONSULT (HIGH) GENERAL AGENT Procedure Codes: 60652-81- NON-STRESS TEST JOE DOWNEY DO Sep 18, 2024 22:46
[2024-09-19] MEDS: LACT. RINGERS/OXYTOCIN 20UNITS 500 ML IV ONE ×2 (01:08→01:28)
[2024-09-19] MEDS: LIDOCAINE 2%HCL (LOCAL ANESTH.) INJ 20ML MDV IJ PRN (01:26)
[2024-09-19] MEDS ORDERED: ONDANSETRON ODT 4 MG TAB PO PRN (04:15)
--- NOTE | 2024-09-19 05:57 | LDN2 ---
Labor and Delivery Note Date 09/19/24 Age 34 2 Para 1 AB 0 EDC 39 + EGA 39+ Diagnosis s/p induction AMA , Macrosomia Vaginal Delivery: VTX Vacuum Assisted: No Placenta: Spontaneous Sex: Female Weight 8lbs 8oz Apgars 8/9 Nuchal Cord Transected: No Amniotic Fluid: Clear Anesthesia epidural Jeremiah HERNANDEZ Episiotomy: No Extension: Yes (2nd post midline 1st degree anterior midline) Repaired with 2-0 Chromic EBL 400cc Labs Blood Bank 09/18/24 08:43: Blood Type O POSITIVE Complications none Conditions stable Aircraft Design Engineer none present , respiratory team present Visit Coding OBGYN Date of Service: Sep 19, 2024 Billing Provider: JOE DOWNEY DO MUSIC MANAGER Common Visit Codes: 69461-WUF/OBS SAME DATE (MOD), 74786-KYQ/OBS SAME DATE (HIGH), 53552-GLS/OBS DISCH DAY <30MIN MUSIC MANAGER Consultation Codes: 58749-G/U INPATIENT CONSULT (HIGH) MUSIC MANAGER Procedure Codes: 34523-FOQ DEL INCLUDING JOE DOWNEY DO Sep 19, 2024 05:56
[2024-09-19 07:00] VITALS: BP 124/76; PULSE 102; RESP 15; TEMP 97.7; O2SAT 98
[2024-09-19] MEDS: ACETAMINOPHEN 325 MG TAB PO PRN (08:02)
[2024-09-19 11:00] VITALS: BP 124/77; PULSE 105; RESP 16; TEMP 98.6; O2SAT 98
[2024-09-19 15:00] VITALS: BP 125/71; PULSE 90; RESP 16; TEMP 98.3; O2SAT 98
[2024-09-19] MEDS: IBUPROFEN 600 MG TAB PO PRN (18:54)
[2024-09-19 19:00] VITALS: BP 115/77; PULSE 96; RESP 17; TEMP 97.6; O2SAT 98
[2024-09-19] MEDS ORDERED: IBUPROFEN 800 MG TAB PO PRN (21:30)
[2024-09-19] MEDS ORDERED: HYDROcodone-ACET 5/325MG TAB PO PRN (21:30)
[2024-09-19 23:00] VITALS: BP 115/70; PULSE 97; RESP 16; TEMP 97.8; O2SAT 99
--- NOTE | 2024-09-20 00:37 | DVHPN2 ---
Progress Note Date Seen: Sep 20, 2024 Subjective S: bleeding is less, eating food without issues, denies lightheaded/dizziness, pain well controlled with oral medications, no concerns with urinating, passing flatus, no BM yet, ambulating well, /formula vital signs Vital Sign Date Time Temp Pulse Resp B/P (MAP) Pulse Ox O2 Delivery O2 Flow Rate FiO2 09/19/24 23:00 97.8 97 16 115/70 (85) 99 97.8 09/19/24 18:30 Room Air Total Intake and Output 09/19/24 09/19/24 09/20/24 15:00 23:00 07:00 Output Total 500 ml Balance -500 ml medications Current Medications Medications Dose Ordered Sig/Stephan Route Start Time Stop Time Status Last Admin Dose Admin Lactated Ringer's 1,000 ml @ 125 mls/hr Q8H IV 09/18/24 08:30 09/18/24 10:01 125 MLS/HR Nalbuphine HCl 10 mg Q4HP PRN IV 09/18/24 08:30 Cancel Witch Oly 1 pad PRN PRN TOP 09/18/24 08:30 09/18/24 15:44 1 PAD Sodium Lauryl Sulfate 240 ml PRN PRN TOP 09/18/24 08:30 09/18/24 15:44 240 ML Benzocaine 1 applic PRN PRN TOP 09/18/24 08:30 09/18/24 15:44 1 APPLIC Terbutaline Sulfate 0.25 mg ONCE PRN SC 09/18/24 14:30 Cancel Ibuprofen 600 mg Q6HP PRN PO 09/19/24 04:15 09/19/24 18:54 600 MG Acetaminophen 650 mg Q4HP PRN PO 09/19/24 04:15 09/19/24 13:26 650 MG Ondansetron HCl 4 mg Q4HPRN PRN PO 09/19/24 04:15 Docusate Sodium 200 mg HS PO 09/19/24 22:00 Dimethicone 80 mg QID PO 09/19/24 22:00 Ibuprofen 800 mg Q8HP PRN PO 09/19/24 21:30 Ferrous Sulfate 325 mg Q12HR PO 09/19/24 22:00 Acetaminophen/ Hydrocodone Bitart 2 tab Q4HPRN PRN PO 09/19/24 21:30 laboratory and microbiology Laboratory Tests 09/18/24 08:43 Test 09/18/24 08:43 Range/Units Serum Glucose 94 74-106 mg/dL Objective O: VSS Chest: heart sounds normal and lung sounds clear bilaterally Abd: soft, non-tender, fundus at U/firm/midline, active bowel sounds, no rebound or guarding Perineum: sutures intact, edges well approximated, no erythema/edema noted Ext: Non-tender, No edema, 2+ BLE DTRs Lochia: minimal See lab results Problems(with codes): (1) (normal spontaneous vaginal delivery) (2) Precipitous drop in hematocrit Assessment/Plan A: 34yo now PPD#1 s/p Acute blood loss anemia Rh+ Rubella Immune Breast and formula feeding P: D/C home today Rx sent to pharmacy precautions and preeclampsia warning signs reviewed F/U with [facility] office in 2 weeks Plan discussed with: Patient, Spouse Visit Coding OBGYN Date of Service: Sep 20, 2024 Billing Provider: SANDY KINGSTON CNM REGISTRAR NURSES' REGISTRY Common Visit Codes: [id number] INP/OBS CARE(MOD) SANDY KINGSTON CNM Sep 20, 2024 00:37
--- NOTE | 2024-09-20 00:38 | DVHDS2 ---
Obstetrics Discharge Summary Obstetrics Discharge Summary Date of Admission: Sep 18, 2024 Date of Discharge: Sep 20, 2024 Reason For Admission: Induction of Labor Procedures: NST, Ultrasound Intrapartum Procedures: Spontaneous vaginal deliv Procedures: Hct/date: (09/20/24), Hgb/date: (09/20/24) Operative Complicat: Laceration (see delivery note) Discharge Diagnosis: Term -Delivered Discharge Information: Activity (as tolerated, no heavy lifting and nothing in the vagina for 6 weeks), Diet (Routine), Medications (Rx sent), Instructions (Routine), Discharge to (Home), Accompanied by (partner), Discarge date (09/20/24) Visit Coding OBGYN Date of Service: Sep 20, 2024 Billing Provider: SANDY KINGSTON CNM SERVICE DEPARTMENT MANAGER Common Visit Codes: 33751-DJY/OBS DISCH DAY <30MIN SANDY KINGSTON CNM Sep 20, 2024 00:38
[2024-09-20] MEDS ORDERED: DOCU-265 PO (00:39)
[2024-09-20] MEDS ORDERED: IBUP-1456 PO (00:39)
[2024-09-20] MEDS ORDERED: PREN-96 PO (00:39)
[2024-09-20] MEDS: SIMETHICONE 80 MG CHEWABLE TABLET PO SCH (01:49)
[2024-09-20] MEDS: DOCUSATE SOD 100 MG CAP PO SCH (01:49)
[2024-09-20] MEDS: FERROUS SULFATE 325mg EC TAB PO SCH (01:49)
[2024-09-20 03:00] VITALS: BP 112/66; PULSE 92; RESP 16; TEMP 97.8; O2SAT 98
[2024-09-20 07:00] VITALS: BP 117/74; PULSE 88; RESP 16; TEMP 98.1; O2SAT 97
[2024-09-20 09:41] LABS: Basophils # (auto) 0 10 ^3/uL (0-0.2); Basophils % (auto) 0.3 % (0.0-2.0); Eosinophils # (auto) 0.2 10 ^3/uL (0-0.8); Eosinophils % (auto) 1.5 % (0.0-7.0); Hematocrit 30.1 % (36.0-46.0); Hemoglobin 10.2 g/dL (12.2-16.2); Lymphocytes # (auto) 2.1 10 ^3/uL (0.4-5.4); Lymphocytes % (auto) 19.5 % (10.0-50.0); Mean Corpuscular Hgb Conc. 33.8 g/dL (32.0-36.0); Mean Corpuscular Volume 88.6 fL (80.0-100.0); Monocytes # (auto) 0.6 10 ^3/uL (0-1.3); Neutrophils # (auto) 7.8 10 ^3/uL (1.6-8.6); Neutrophils % (auto) 72.7 % (37.0-80.0); Platelet Count (auto) 221 10^3/uL (140-450); Red Cell Distribution Width 15.5 % (11.8-14.3); White Blood Cell 10.8 10^3/uL (4.4-10.8)
== END 2024-09-20 10:50 | disposition home or self-care (01) | DRG 560 ==
LOC: LDRP 08:11
PROVIDERS: ADMIT Obstetrics & Gynecology; ATTEND Obstetrics & Gynecology
PROC: 3E0DXGC Introduction of Other Therapeutic Substance into Mouth and Pharynx, External Approach (ICD-10-PCS; 2024-09-18)
PROC: 10E0XZZ Delivery of Products of Conception, External Approach (ICD-10-PCS; principal; 2024-09-19)
PROC: 0HQ9XZZ Repair Perineum Skin, External Approach (ICD-10-PCS; 2024-09-19)
PROC: 3E0R3BZ Introduction of Anesthetic Agent into Spinal Canal, Percutaneous Approach (ICD-10-PCS; 2024-09-19)
PROC: 00HU33Z Insertion of Infusion Device into Spinal Canal, Percutaneous Approach (ICD-10-PCS; 2024-09-19)
DX: O36.63X0 Maternal care for excessive fetal growth, third trimester, not applicable or unspecified (principal); Z37.0 Single live birth; D62 Acute posthemorrhagic anemia; O48.0 Post-term pregnancy; O90.81 Anemia of the puerperium; O70.0 First degree perineal laceration during delivery; Z3A.38 38 weeks gestation of pregnancy; Z91.013 Allergy to seafood; Z79.1 Long term (current) use of non-steroidal anti-inflammatories (NSAID); Z79.899 Other long term (current) drug therapy
CPT/HCPCS: 36415; 59409; 62282; 76815; 80053; 80307; 81001; 81002; 85025; 85610; 85730; 86780; 86803; 86850; 86900; 86901; 94760; 94762; 96360; 96361; 96365; 96366; G0378; J2590